=== PATIENT | female | born 1950 | race Caucasian/White ===

== ENCOUNTER 2024-08-18 04:03 | Observation (INO) ==
--- NOTE | 2024-08-18 04:53 | Emergency Department Note ---
HPI - Fever General Chief Complaint: Fever Stated Complaint: FLU SYMPTOMS Time Seen by Provider: 08/18/24 04:38 Source: patient and family (son) Mode of arrival: WC Limitations: physical limitation (cannot ambulate per son) History of Present Illness HPI Narrative: 74-year-old female presents to the ED this morning, accompanied by her son, with complaints of 4-day history of subjective fever, chills, body aches and diarrhea. Patient reports her pain is 8 out of 10 on pain scale, constant, aching, all over her body, worse with nothing, better with Tylenol. Patient reports her last dose of Tylenol was at 7 PM last night. The son also contributes, stating patient had a cold last week but was not seen by provider. Pertinent past history: Reports other (Hypertension, elevated cholesterol) Onset (ago): day(s) (4) Measured temperature: 100.9 F (subjective fever) Context: Denies sick contacts, other(s) with similar symptoms, recent travel, recent procedure, recent antibiotic use, on chemotherapy, on immunosuppressant(s), recent hospitalization or recent incarceration Exacerbating factors: Reports nothing Relieving factors: Reports acetaminophen Associated symptoms: Reports nasal congestion, sore throat, cough and shortness of breath Treatments prior to arrival fever: Reports acetaminophen (last dose 7pm) Related Data Allergies Allergy/AdvReac Type Severity Reaction Status Date / Time No Known Drug Allergies Allergy Verified 08/18/24 05:52 Review of Systems Status of ROS 10 or more systems reviewed and unremark able except as noted in history and below Constitutional Reports: fever (Subjective), chills, fatigue and other (G eneralized body aches) Eyes Denies: change in vision, eye discomfort or eye discharge Ears, nose, mouth, and throat Reports: throat pain and nasal congestion; Denies: neck pain, throat swelling, difficulty swallowing, hoarseness, ear pain or change in hearing (chronically [place]) Cardiovascular Denies: chest pain, palpitations, edema, swelling of feet/ankles or lightheadedness Respiratory Reports: shortness of breath and cough; Denies: wheezing, pain on inspiration or chest congestion Gastrointestinal Reports: diarrhea and other (Denies dark, tarry stool); Denies: abdominal pain, nausea, vomiting, constipation or blood in stool Genitourinary Denies: painful urination, urinary frequency, urinary urgency, blood in urine, difficulty voiding, decreased urine ouput or pelvic pain Musculoskeletal Reports: other (Generalized body aches); Denies: extremity swelling or limited range of motion Integumentary/Breast Denies: rash, itching, changes in skin color or jaundice Neurological Reports: weakness in extremities (generalized); Denies: headache, numbness in extremities, lack of coordination, dizziness or difficulty communicating thoughts Psychiatric Denies: anxiety or difficulty concentrating Endocrine Reports: fatigue; Denies: excessive urination or excessive thirst Hematologic/Lymphatic Denies: easy bruising or easy bleeding PFSH PFSH Medical History HTN (hypertension) Hyperlipidemia Surgical History Hx of cholecystectomy Social History (Updated 08/18/24 @ 06:15 by Bertha العراقي APRN) Smoking status: never smoker Within the past year, how often did you have a drink containing alcohol: never Score interpretation: A score less than 3 is consistent with normal alcohol consumption. Non-prescribed substance use: denies use Exam Constitutional: normal general appearance, no apparent distress, average body habitus, limitations noted (physical limitations) (son states pt is to weak to ambulate) and alert Vital Signs - 24 hr 08/18/24 04:05 08/18/24 05:00 08/18/24 06:00 Temperature 100.9 F H Pulse Rate 71 82 80 Respiratory Rate 22 22 20 Blood Pressure 149/59 152/65 145/68 Pulse Oximetry 98 96 96 Oxygen Delivery Me thod Room Air Room Air Room Air 08/18/24 07:00 Temperature Pulse Rate 85 Respiratory Rate 20 Blood Pressure 142/65 Pulse Oximetry 96 [facility] HENMT: normocephalic, head/scalp atraumatic, hearing grossly normal bilaterally (chronically [place]), external ears normal, TMs abnormal (dull) (bilateral) and (fluid behind TM) (bilateral), nasal mucous membranes abnormal (nasal discharge) (clear rhinorrhea, mild), external nose normal, oral mucous membranes abnormal (dry) and oropharynx abnormal (erythema) (mild) Eyes: PERRL, EOMs intact bilaterally, conjunctivae normal, no scleral icterus and periorbital findings normal Neck/C-Spine: visual inspection normal, trachea midline, cervical spine nontender, cervical full ROM noted, supple and no meningeal signs Lymph: no lymphadenopathy noted Chest: inspection of chest normal and palpation of chest normal Respiratory: breath sounds equal bilaterally, normal respiratory effort, clear to auscultation bilaterally and no use of accessory muscles Cardiovascular: normal heart rate noted, regular rhythm noted and no murmur Gastrointestinal: abdomen normal to inspection, abdomen soft to palpation, nontender to palpation, nondistended, abnormal bowel sounds noted (hyperactive bowel sounds), no hepatosplenomegaly and no masses Genitourinary: no CVA tenderness and bladder normal to palpation Back/Pelvis: spine normal to inspection, no thoracic spine tenderness, no lumbar spine tenderness, thoracic spine ROM normal and lumbar spine ROM normal Extremities: normal to inspection, normal to palpation, no tenderness, full ROM and no deformity Neurology: no movement abnormality noted, no focal motor deficit noted, no sensory deficits noted, gait normal, coordination normal and GCS normal Psychiatry: mental status grossly normal, oriented x3, thought process normal, cooperative and affect normal Skin: skin color normal, no rash, no ecchymosis noted, no wounds, no lacerations, skin turgor normal and no jaundice Course Course Hospital Course: 0543 - Pt now c/o upper abdominal pain. 10/10 on pain scale, constant, aching, better with nothing, worse with movement. CT abd/pelv with contrast ordered. 0608 - D Dimer elevated. CT angio Chest (PE protocol ordered). 0615 - Handoff given to Ania Flores NP. CT abd/pelv with contrast and CT angio chest (PE protocol) still pending. Vital Signs Vital signs: Vital Signs Temperature 100.9 F H 08/18/24 04:05 Pulse Rate 71 08/18/24 04:05 Respiratory Rate 22 08/18/24 04:05 Blood Pressure 149/59 08/18/24 04:05 Pulse Oximetry 98 08/18/24 04:05 Oxygen Delivery Method Room Air 08/18/24 04:05 Temperature 100.9 F H 08/18/24 04:05 Pulse Rate 85 08/18/24 07:00 Respiratory Rate 20 08/18/24 07:00 Blood Pressure 142/65 08/18/24 07:00 Pulse Oximetry 96 08/18/24 07:00 Oxygen Delivery Method Room Air 08/18/24 07:00 MDM - Fever MDM Narrative Medical decision making narrative: This is a 74 yo WF patient who presented to the ER today for complaints of 4-day history of subjective fever, chills, body aches and diarrhea. Patient reports her pain is 8 out of 10 on pain scale, constant, aching, all over her body, worse with nothing, better with Tylenol. Patient reports her last dose of T ylenol was at 7 PM last night. The son also contributes, stating patient had a cold last week but was not seen by provider. Patient was evaluated by physical exam labs, chest x-ray, CT abdomen and pelvis and CTA chest. She was found to have fever, bilateral otitis media, chest x-ray concerning for pneumonia- pending read, possible left breast mass noted on CTA chest. Labs revealed dehydration and sepsis. Patient received 2500 NS bolus, 1g Tylenol po, Rocephin 1 gm IV and Azithromycin 500 mg IV. Plan to admit for further evaluation and treatment including IV antibiotics, IV hydration and electrolyte correction. Patient in agreement for admission. Discussed case with UR and Dr. Gonzalez who is in agreement with treatment plan. Differential Diagnosis Differential diagnosis: Likely gastroenteritis, community acquired pneumonia, viral infection, sepsis and influenza Medical Records Attestation: I reviewed the patient's medical records. Lab Data Attestation: I reviewed the patient's lab results. Labs: Lab Results 08/18/24 08/18/24 08/18/24 Range/Units 05:10 06:00 06:00 WBC 13.2 H (4.3-9.3) K/uL RBC 5.3 (4.00-5.50) M/uL Hgb 13.8 (12.5-15.8) gm/dL Hct 42.6 (35.9-46.7) % MCV 79.7 L (81.0-93.7) fl MCH 25.8 L (27.6-32.2) pg MCHC 32.3 L (33.1-35.3) g/dl RDW 16.8 H (11.4-14.2) % Plt Count 228 (152-353) K/uL MPV 9.2 (6.9-10.8) fl Gran % 90.6 H (47.8-71.3) % Lymph % (Auto) 5.4 L (20.0-43.0) % [place] % (Auto) 1.7 L (3.6-9.8) % Eos % (Auto) 1.9 (0.4-2.8) % Baso % (Auto) 0.4 (0.1-0.85) Lymph # (Auto) 0.7 L (1.1-3.1) [place] # (Auto) 0.2 L (1.1-3.1) Eos # (Auto) 0.3 H (0.0-0.2) Baso # (Auto) 0.1 (0.0-0.1) Absolute Gran (auto) 11.9 H (2.3-6.0) D-Dimer 986 H (100-600) ng/mL ABG pH 7.52 H (7.35-7.45) ABG pCO2 25 L (35-45) mmHg ABG pO2 75 118 (60-100) mmHg ABG PO2/FiO2 Ratio 0.64 ABG HCO3 20.4 L (22-26) mmo1/L ABG Total CO2 21.2 mmo1/L ABG O2 Saturation 96 (92-100) % ABG Base Excess -1.1 (-2-2) mmo1/L Respiratory Index 0 (0-1) FiO2 50 % Sodium 140 (136-145) mmol/L Potassium 3.9 (3.6-5.2) mmol/L Chloride 103.0 (98-107) mmol/L Carbon Dioxide 24 (21-32) mmol/L Anion Gap 13.0 (4-14) mEq/L BUN 12 (7-18) mg/dL Creatinine 1.0 (0.6-1.3) mg/dL Estimated GFR 58.8 (>59.9) Glucose 108 (70-110) mg/dL Lactic Acid 2.9 H (0.27-1.43) mmol/L Calcium 9.8 (8.5-10.1) mg/dL Total Bilirubin 0.42 (0.0-1.0) mg/dL AST 21 (15-37) U/L ALT 14 L (30-65) U/L Alkaline Phosphatase 149 H (50-136) U/L B-Natriuretic Peptide 45.8 (0-100) pg/mL Total Protein 9.0 H (6.4-8.2) g/dL Albumin 3.8 (3.4-5.0) g/dL Lipase 49.0 (16.0-77.0) U/L COVID-19 ([place]) Not detected (Not Detectd) Influenza Type A Ag Negative (Negative) Influenza Type B Ag Negative (Negative) Streptococcus Screen Negative (Negative) 08/18/24 Range/Units 08:15 WBC (4.3-9.3) K/uL RBC (4.00-5.50) M/uL Hgb (12.5-15.8) gm/dL Hct (35.9-46.7) % MCV (81.0-93.7) fl MCH (27.6-32.2) pg MCHC (33.1-35.3) g/dl RDW (11.4-14.2) % Plt Count (152-353) K/uL MPV (6.9-10.8) fl Gran % (47.8-71.3) % Lymph % (Auto) (20.0-43.0) % [place] % (Auto) (3.6-9.8) % Eos % (Auto) (0.4-2.8) % Baso % (Auto) (0.1-0.85) Lymph # (Auto) (1.1-3.1) [place] # (Auto) (1.1-3.1) Eos # (Auto) (0.0-0.2) Baso # (Auto) (0.0-0.1) Absolute Gran (auto) (2.3-6.0) D-Dimer (100-600) ng/mL ABG pH (7.35-7.45) ABG pCO2 (35-45) mmHg ABG pO2 (60-100) mmHg ABG PO2/FiO2 Ratio ABG HCO3 (22-26) mmo1/L ABG Total CO2 mmo1/L ABG O2 Saturation (92-100) % ABG Base Excess (-2-2) mmo1/L Respiratory Index (0-1) FiO2 % Sodium (136-145) mmol/L Potassium (3.6-5.2) mmol/L Chloride (98-107) mmol/L Carbon Dioxide (21-32) mmol/L Anion Gap (4-14) mEq/L BUN (7-18) mg/dL Creatinine (0.6-1.3) mg/dL Estimated GFR (>59.9) Glucose (70-110) mg/dL Lactic Acid 2.0 H (0.27-1.43) mmol/L Calcium (8.5-10.1) mg/dL Total Bilirubin (0.0-1.0) mg/dL AST (15-37) U/L ALT (30-65) U/L Alkaline Phosphatase (50-136) U/L B-Natriuretic Peptide (0-100) pg/mL Total Protein (6.4-8.2) g/dL Albumin (3.4-5.0) g/dL Lipase (16.0-77.0) U/L COVID-19 ([place]) (Not Detectd) Influenza Type A Ag (Negative) Influenza Type B Ag (Negative) Streptococcus Screen (Negative) ABG Data Attestation: I have reviewed the pertinent ABG results. Interpretation: Primary Respiratory Alkalosis, Chronic with secondary metabolic alkalosis Imaging Data Imaging ordered: Chest x-ray, CT scan - abdomen and CT scan - chest Radiologist's impression: EXAM: CT ABDOMEN PELVIS W CON HISTORY: upper abdominal pain, nauseaupper abdominal pain, nausea; isovue 370 98 ml COMPARISON: 06/15/2023 TECHNIQUE: CT of the abdomen and pelvis obtained with IV contrast. Dose reduction techniques including Automated Exposure Control (AEC) and adjustment of mA and kV were utilized. Motion limited exam. FINDINGS: The visualized portions of the lower thorax demonstrate no acute process. No acute osseous abnormality. Multilevel degenerative changes in the visualized spine. Grade 1 anterolisthesis of L4 on L5. The liver, spleen, pancreas, bilateral adrenal glands, and bilateral kidneys demonstrate no acute process. Prior cholecystectomy. No evidence of bowel obstruction. The appendix is unremarkable. Diverticulosis without evidence of diverticulitis. The bladder is unremarkable. Prior hysterectomy. No free air or fluid. Nonaneurysmal aorta. Scattered vascular calcifications. IMPRESSION: No acute findings in the abdomen or pelvis. THIS IS AN ELECTRONICALLY VERIFIED FINAL REPORT 08/18/2024 6:37 AM - Electronically signed by Seth Mehta MD EXAM: CT ANGIO CHEST PE PROTOCOL HISTORY: elevated D Dimer, SOBelevated D Dimer, SOB; COMPARISON: None TECHNIQUE: CT angiogram of the chest obtained with IV contrast. 3D MIPS images obtained and reviewed. Dose reduction techniques including Automated Exposure Control (AEC) and adjustment of mA and kV were utilized. FINDINGS: No pneumothorax or effusion. No acute airspace disease. Peripheral scarring or atelectasis in the lungs. Evaluation of the pulmonary arteries is limited due to respiratory motion and contrast bolus timing. No evidence of pulmonary embolism. The heart is normal in size. No evidence of pericardial disease. No mediastinal adenopathy. No acute osseous abnormality. Possible left breast mass. The limited visualized portions of the upper abdomen demonstrate no acute process. Prior cholecystectomy. IMPRESSION: No evidence of pulmonary embolism. No acute airspace disease. Possible left breast mass. Recommend diagnostic mammogram and ultrasound for further evaluation. THIS IS AN ELECTRONICALLY VERIFIED FINAL REPORT 08/18/2024 8:00 AM - Electronically signed by Seth Mehta MD Discharge Plan Discharge Patient Disposition: Admitted As Inpatient Condition: Stable Clinical Impression: Community acquired pneumonia, Sepsis, Acute dehydration, Bilateral acute otitis media, Mass of left breast Time of Disposition: 08:57
[2024-08-18 05:21] LABS: Basophils #(Absolute) Auto 0.1 (0.0-0.1); Basophils%(Percent) Auto 0.4 (0.1-0.85); Eosinophils#(Absolute)Auto 0.3 (0.0-0.2); Eosinophils%(Percent) Auto 1.9 % (0.4-2.8); Granulocytes % - Auto 90.6 % (47.8-71.3); Granulocytes#(Absolute)- Auto 11.9 (2.3-6.0); Hematocrit 42.6 % (35.9-46.7); Mean Corpuscular Volume 79.7 fl (81.0-93.7); Monocytes #(Absolute)- Auto 0.2 (1.1-3.1); Monocytes %(Percent)- Auto 1.7 % (3.6-9.8); Platelet Count 228 K/uL (152-353); White Blood Count 13.2 K/uL (4.3-9.3)
[2024-08-18] MEDS ORDERED: 0.9 % SODIUM CHLORIDE 500 ML IV ONE (05:38)
[2024-08-18 05:39] LABS: Potassium 3.9 mmol/L (3.6-5.2)
[2024-08-18] MEDS: ACETAMINOPHEN 500 MG TABLET PO ONE (05:39)
[2024-08-18] MEDS ORDERED: ACETAMINOPHEN 500 MG TABLET ONE ×2 (05:39→05:40)
[2024-08-18 06:20] LABS: PCO2 ABG 25 mmHg (35-45); pH ABG 7.52 (7.35-7.45)
[2024-08-18 06:21] LABS: PO2 ABG 75 mmHg (60-100)
[2024-08-18 06:22] LABS: Base Excess ABG -1.1 mmo1/L (-2-2)
[2024-08-18 06:23] LABS: Oxygen Saturation ABG 96 % (92-100)
[2024-08-18] MEDS ORDERED: CEFTRIAXONE SODIUM 1 GM VIAL ONE (06:52)
[2024-08-18] MEDS ORDERED: AZITHROMYCIN 250 MG TABLET ONE (06:52)
[2024-08-18] MEDS: 0.9 % SODIUM CHLORIDE 1000 ML 1,000 ML IV STA ×2 (06:53→07:00)
[2024-08-18] MEDS: CEFTRIAXONE SODIUM 1 GM in 0.9 % SODIUM CHLORIDE MB+ 50 ML IV ONE (06:54)
[2024-08-18] MEDS ORDERED: 0.9 % SODIUM CHLORIDE 50 ML IV ONE (06:54)
[2024-08-18] MEDS: 0.9 % SODIUM CHLORIDE 500 ML IV STA (07:00)
[2024-08-18] MEDS ORDERED: 0.9 % SODIUM CHLORIDE 250 ML IV ONE (08:07)
[2024-08-18] MEDS ORDERED: AZITHROMYCIN 500 MG VIAL ONE (08:07)
[2024-08-18] MEDS: AZITHROMYCIN 500 MG 500 MG in 0.9 % SODIUM CHLORIDE 250 ML IV ONE (08:15)
[2024-08-18] MEDS: KETOROLAC 30 MG/ML INJ VIAL IVP PRN (17:24)
[2024-08-19] MEDS ORDERED: IBUPROFEN 400 MG TABLET PO PRN (04:14)
[2024-08-19] MEDS: ACETAMINOPHEN 325 MG TABLET PO PRN (04:52)
[2024-08-19 06:34] LABS: Basophils #(Absolute) Auto 0.1 (0.0-0.1); Eosinophils#(Absolute)Auto 0.1 (0.0-0.2); Eosinophils%(Percent) Auto 1.2 % (0.4-2.8); Granulocytes % - Auto 75.9 % (47.8-71.3); Hematocrit 36.7 % (35.9-46.7); Mean Corpuscular Volume 77.5 fl (81.0-93.7); Monocytes #(Absolute)- Auto 0.6 (1.1-3.1); Monocytes %(Percent)- Auto 9.1 % (3.6-9.8); Platelet Count 184 K/uL (152-353); White Blood Count 6.5 K/uL (4.3-9.3)
[2024-08-19 06:47] LABS: Potassium 3.7 mmol/L (3.6-5.2)
--- NOTE | 2024-08-19 07:50 | Event Note ---
Event Note Event Note: 0415 - called by AYUSH Daniel, who reports pt is c/o body aches and has no PRN medications ordered. Orders given for Tylenol 650mg PO q 6hrs PRN pain and Ibuprofen 600mg PO q 8hrs PRN pain.
[2024-08-19 07:59] VITALS: RESP 19
[2024-08-19] MEDS: CEFTRIAXONE SODIUM 1 GM in 0.9 % SODIUM CHLORIDE MB+ 50 ML IV SCH (08:19)
[2024-08-19] MEDS: AZITHROMYCIN 500 MG 500 MG in 0.9 % SODIUM CHLORIDE 250 ML IV SCH (08:19)
[2024-08-19 11:42] VITALS: BP 147/58; PULSE 86; TEMP 98.3
[2024-08-19] MEDS: LOSARTAN POTASSIUM 50 MG TABLET PO SCH (11:59)
[2024-08-19] MEDS: DULOXETINE HCL 30 MG CAPSULE.DR PO SCH (12:00)
[2024-08-19] MEDS: AMLODIPINE BESYLATE 5 MG TABLET PO SCH (12:00)
[2024-08-19] MEDS: FAMOTIDINE 20 MG TABLET PO SCH (12:39)
--- NOTE | 2024-08-19 14:09 | Short Stay Summary ---
H&P: HPI History of Present Illness Chief complaint: PNEUMONIA, SEPSIS, BILATERAL OTITIS MEDIA Narrative: 74-year-old female presents to the ED this morning, accompanied by her son, with complaints of 4-day history of subjective fever, chills, body aches and diarrhea. Patient reports her pain is 8 out of 10 on pain scale, constant, aching, all over her body, worse with nothing, better with Tylenol. Patient reports her last dose of Tylenol was at 7 PM last night. The son also contributes, stating patient had a cold last week but was not seen by provider. Pertinent past history: Reports other (Hypertension, elevated cholesterol) Onset (ago): day(s) (4) Measured temperature: 100.9 F (subjective fever) Context: Denies sick contacts, other(s) with similar symptoms, recent travel, recent procedure, recent antibiotic use, on chemotherapy, on immunosuppressant(s), recent hospitalization or recent incarceration Exacerbating factors: Reports nothing Relieving factors: Reports acetaminophen Associated symptoms: Reports nasal congestion, sore throat, cough and shortness of breath Treatments prior to arrival fever: Reports acetaminophen (last dose 7pm) Review of Systems Status of ROS 10 or more systems reviewed and unremark able except as noted in history and below Constitutional Reports: fever (Subjective), chills, fatigue, malaise and other (Generalized body aches); Denies: change in weight, night sweats or change in sleep pattern Eyes Denies: change in vision, blurry vision, blind spots, light sensitivity, eye discomfort or eye discharge Ears, nose, mouth, and throat Reports: throat pain and nasal congestion; Denies: neck pain, throat swelling, difficulty swallowing, hoarseness, mouth pain, swelling of lips/tongue, ear pain or change in hearing (chronically [place]) Cardiovascular Reports: shortness of breath with exertion; Denies: chest pain, palpitations, edema, swelling of feet/ankles or lightheadedness Respiratory Reports: shortness of breath and cough; Denies: wheezing, stridor, pain on inspiration, change in phlegm color, coughing up blood or chest congestion Gastrointestinal Reports: heartburn, diarrhea and other (Denies dark, tarry stool); Denies: abdominal pain, nausea, vomiting, coffee grounds in vomit, constipation, bloating, belching, excessive passing of gas, difficulty swallowing, feeling full early, change in bowel habits or blood in stool Genitourinary Reports: urinary incontinence; Denies: painful urination, urinary frequency, urinary urgency, blood in urine, difficulty voiding, decreased urine ouput, pelvic pain, painful menstruation, vaginal bleeding or vaginal discharge Musculoskeletal Reports: other (Generalized body aches); Denies: back pain, neck pain, extremity pain, extremity swelling, joint pain, limited range of motion or joint swelling Integumentary/Breast Denies: rash, itching, redness, skin pain, skin tenderness, changes in skin color or jaundice Neurological Reports: weakness in extremities (generalized) and vertigo; Denies: headache, numbness in extremities, lack of coordination, dizziness, confusion, slurred speech or difficulty communicating thoughts Psychiatric Reports: irritability; Denies: anxiety, mood swings, panic attacks, change in sleep pattern, hopelessness, loss of interest, difficulty concentrating, visual hallucinations or auditory hallucinations Endocrine Reports: fatigue; Denies: excessive urination, excessive thirst, cold intolerance, excessive sweating, flushing or change in body appearance Hematologic/Lymphatic Denies: easy bruising, easy bleeding or enlarged lymph nodes Allergic/Immunologic Denies: hives, throat swelling, tongue swelling, facial swelling, wheezing or itchy eyes PFSH PFSH Medical History Epigastric pain GERD with esophagitis Depression Diabetes type 2 with atherosclerosis of arteries of extremities Vertigo Arthritis Breast mass, left HTN (hypertension) Hyperlipidemia Surgical History Hx of cholecystectomy Social History Smoking status: never smoker Within the past year, how often did you have a drink containing alcohol: never Score interpretation: A score less than 3 is consistent with normal alcohol consumption. Non-prescribed substance use: denies use Problems where you live: no known problems Highest level of school completed/degree received: high school Meds Home Medications and Allergies Home Medications Medication Instructions Recorded Confirmed Type amlodipine 5 mg tablet 5 mg PO DAILY 08/18/24 08/18/24 History celecoxib 100 mg capsule 100 mg PO Q12H 08/18/24 08/18/24 History duloxetine 30 mg capsule,delayed 30 mg PO DAILY 08/18/24 08/18/24 History release famotidine 20 mg tablet 20 mg PO Q12H 08/18/24 08/18/24 History losartan 50 mg tablet 50 mg PO .Q 12 hours 08/18/24 08/18/24 History meclizine 25 mg tablet 25 mg PO .Q 12 hours PRN dizziness 08/18/24 08/18/24 History rosuvastatin 10 mg tablet 10 mg PO DAILY 08/18/24 08/18/24 History trazodone 50 mg tablet 50 mg PO BEDTIME PRN sleep 08/18/24 08/18/24 History azithromycin 250 mg tablet See Rx Instructions PO .COMPLEX 08/19/24 Rx (Zithromax Z-Ashkan) pneumonia #6 tabs Allergies Allergy/AdvReac Type Severity Reaction Status Date / Time No Known Drug Allergies Allergy Verified 08/18/24 05:52 Exam Constitutional: normal general appearance, no apparent distress, abnormal body habitus (overweight), limitations noted (physical limitations) (son states pt is to weak to ambulate) and alert Vital Signs - 24 hr 08/18/24 16:25 08/18/24 20:00 08/19/24 01:00 Temperature 97.7 F 98.6 F 98.4 F Pulse Rate [Left B rachial] 84 89 82 Respiratory Rate 19 18 18 Blood Pressure [Le ft Arm] 167/95 162/80 152/62 Pulse Oximetry 95 95 93 L Oxygen Delivery Pa thod Room Air Room Air Room Air 08/19/24 04:00 08/19/24 07:58 08/19/24 11:41 Temperature 98.1 F 97.6 F 98.3 F Pulse Rate [Left B rachial] 74 80 86 Respiratory Rate 18 19 19 Blood Pressure [Le ft Arm] 146/71 156/72 147/58 Pulse Oximetry 94 L 95 96 Oxygen Delivery Pa thod Room Air Room Air Room Air HENMT: normocephalic, head/scalp atraumatic, hearing grossly normal bilaterally (chronically [place]), external ears normal, TMs abnormal (dull) (bilateral) and (fluid behind TM) (bilateral), nasal mucous membranes abnormal (nasal discharge) (clear rhinorrhea, mild), external nose normal, oral mucous membranes abnormal (dry) and oropharynx abnormal (erythema) (mild) Eyes: PERRL, EOMs intact bilaterally, conjunctivae normal, no scleral icterus and periorbital findings normal Neck/C-Spine: visual inspection normal, trachea midline, cervical spine nontender, cervical full ROM noted, supple and no meningeal signs Lymph: no lymphadenopathy noted and no lymphedema noted Chest: inspection of chest normal and palpation of chest normal Respiratory: breath sounds equal bilaterally, normal respiratory effort, clear to auscultation bilaterally, wheezing noted, no rales, no retractions, no use of accessory muscles and chest percussion normal Cardiovascular: normal heart rate noted, regular rhythm noted, no gallop, no rub, no murmur, no JVD, no clicks and peripheral pulses 2+ throughout Gastrointestinal: abdomen normal to inspection, abdomen soft to palpation, nontender to palpation, nontender to percussion, nondistended, abnormal bowel sounds noted (hyperactive bowel sounds), no hepatosplenomegaly, no masses and no pulsatile mass Genitourinary: no CVA tenderness, bladder normal to palpation, external appearance normal, vagina normal and cervix normal Back/Pelvis: spine normal to inspection, no thoracic spine tenderness, no lumbar spine tenderness, thoracic spine ROM normal and lumbar spine ROM normal Extremities: normal to inspection, normal to palpation, no tenderness, full ROM, no joint enlargement and no deformity Neurology: floor director II-XII intact, no movement abnormality noted, no focal motor deficit noted, sensory deficit noted, deep tendon reflexes 2+ bilaterally, gait normal, speech normal, coordination normal and GCS normal Psychiatry: mental status grossly normal, oriented x3, thought process normal, cooperative and affect normal Skin: skin color normal, no rash, no lesions, no ecchymosis noted, no wounds, no lacerations, skin turgor normal, no jaundice, no petechiae, no mottling, nails normal and no alopecia Assessment and Plan Assessment and Plan (1) Pneumonia: Qualifiers: Laterality: unspecified laterality Lung location: unspecified part of lung Pneumonia type: due to unspecified organism Qualified Code(s): J18.9 - Pneumonia, unspecified organism Code(s): J18.9 - Pneumonia, unspecified organism (2) Breast mass, left: Qualifiers: Breast mass location: unspecified quadrant Qualified Code(s): N63.20 - Unspecified lump in the left breast, unspecified quadrant Code(s): N63.20 - Unspecified lump in the left breast, unspecified quadrant (3) HTN (hypertension): Qualifiers: Hypertension type: primary hypertension Qualified Code(s): I10 - Essential (primary) hypertension Code(s): I10 - Essential (primary) hypertension (4) Vertigo: Code(s): R42 - Dizziness and giddiness (5) Diabetes type 2 with atherosclerosis of arteries of extremities: Code(s): E11.51 - Type 2 diabetes mellitus with diabetic peripheral angiopathy without gangrene; I70.209 - Unspecified atherosclerosis of [place] arteries of extremities, unspecified extremity (6) GERD with esophagitis: Qualifiers: Esophagitis bleeding: without hemorrhage Qualified Code(s): K21.00 - Gastro-esophageal reflux disease with esophagitis, without bleeding Code(s): K21.00 - Gastro-esophageal reflux disease with esophagitis, without bleeding (7) Epigastric pain: Code(s): R10.13 - Epigastric pain Results Labs Labs: CBC WBC 6.5 K/uL (4.3-9.3) 08/19/24 05:45 RBC 4.7 M/uL (4.00-5.50) 08/19/24 05:45 Hgb 12.1 gm/dL (12.5-15.8) L 08/19/24 05:45 Hct 36.7 % (35.9-46.7) 08/19/24 05:45 MCV 77.5 fl (81.0-93.7) L 08/19/24 05:45 MCH 25.5 pg (27.6-32.2) L 08/19/24 05:45 MCHC 32.9 g/dl (33.1-35.3) L 08/19/24 05:45 RDW 16.4 % (11.4-14.2) H 08/19/24 05:45 Plt Count 184 K/uL (152-353) 08/19/24 05:45 MPV 10.7 fl (6.9-10.8) 08/19/24 05:45 Gran % 75.9 % (47.8-71.3) H 08/19/24 05:45 Lymph % (Auto) 12.8 % (20.0-43.0) L 08/19/24 05:45 [place] % (Auto) 9.1 % (3.6-9.8) 08/19/24 05:45 Eos % (Auto) 1.2 % (0.4-2.8) 08/19/24 05:45 Baso % (Auto) 1.0 (0.1-0.85) H 08/19/24 05:45 Lymph # (Auto) 0.8 (1.1-3.1) L 08/19/24 05:45 [place] # (Auto) 0.6 (1.1-3.1) L 08/19/24 05:45 Eos # (Auto) 0.1 (0.0-0.2) 08/19/24 05:45 Baso # (Auto) 0.1 (0.0-0.1) 08/19/24 05:45 Absolute Gran (auto) 5.0 (2.3-6.0) 08/19/24 05:45 BMP Sodium 138 mmol/L (136-145) 08/19/24 05:45 Potassium 3.7 mmol/L (3.6-5.2) 08/19/24 05:45 Chloride 102.0 mmol/L (98-107) 08/19/24 05:45 Carbon Dioxide 26 mmol/L (21-32) 08/19/24 05:45 Anion Gap 10.0 mEq/L (4-14) 08/19/24 05:45 BUN 9 mg/dL (7-18) 08/19/24 05:45 Creatinine 0.8 mg/dL (0.6-1.3) 08/19/24 05:45 Estimated GFR 76.8 (>59.9) 08/19/24 05:45 Glucose 113 mg/dL (70-110) H 08/19/24 05:45 Calcium 9.6 mg/dL (8.5-10.1) 08/19/24 05:45 Total Bilirubin 0.27 mg/dL (0.0-1.0) 08/19/24 05:45 AST 21 U/L (15-37) 08/19/24 05:45 ALT 17 U/L (30-65) L 08/19/24 05:45 Alkaline Phosphatase 98 U/L (50-136) 08/19/24 05:45 Total Protein 7.4 g/dL (6.4-8.2) 08/19/24 05:45 Albumin 3.0 g/dL (3.4-5.0) L 08/19/24 05:45 Liver Function Total Bilirubin 0.27 mg/dL (0.0-1.0) 08/19/24 05:45 AST 21 U/L (15-37) 08/19/24 05:45 ALT 17 U/L (30-65) L 08/19/24 05:45 Alkaline Phosphatase 98 U/L (50-136) 08/19/24 05:45 Total Protein 7.4 g/dL (6.4-8.2) 08/19/24 05:45 Albumin 3.0 g/dL (3.4-5.0) L 08/19/24 05:45 ABG ABG results: 08/18/24 06:00 ABG pH 7.52 H ABG pCO2 25 L ABG pO2 118 ABG HCO3 20.4 L ABG Total CO2 21.2 ABG O2 Saturation 96 ABG Base Excess -1.1 Attestation: I have reviewed the pertinent ABG results. Pulse Oximetry Attestation: I have reviewed the pertinent pulse oximetry results. ECG Attestation: I have reviewed the pertinent ECG results. Imaging Imaging ordered: Chest x-ray, CT scan - abdomen and other (chest CTA) Radiologist's impression: CT angiogram of the chest obtained with IV contrast. 3D MIPS images obtained and reviewed. Dose reduction techniques including Automated Exposure Control (AEC) and adjustment of mA and kV were utilized. FINDINGS: No pneumothorax or effusion. No acute airspace disease. Peripheral scarring or atelectasis in the lungs. Evaluation of the pulmonary arteries is limited due to respiratory motion and contrast bolus timing. No evidence of pulmonary embolism. The heart is normal in size. No evidence of pericardial disease. No mediastinal adenopathy. No acute osseous abnormality. Possible left breast mass. The limited visualized portions of the upper abdomen demonstrate no acute process. Prior cholecystectomy. IMPRESSION: No evidence of pulmonary embolism. No acute airspace disease. Possible left breast mass. Recommend diagnostic mammogram and ultrasound for further evaluation. CT ABDOMEN PELVIS W CON HISTORY: upper abdominal pain, nauseaupper abdominal pain, nausea; isovue 370 98 ml COMPARISON: 06/15/2023 TECHNIQUE: CT of the abdomen and pelvis obtained with IV contrast. Dose reduction techniques including Automated Exposure Control (AEC) and adjustment of mA and kV were utilized. Motion limited exam. FINDINGS: The visualized portions of the lower thorax demonstrate no acute process. No acute osseous abnormality. Multilevel degenerative changes in the visualized spine. Grade 1 anterolisthesis of L4 on L5. The liver, spleen, pancreas, bilateral adrenal glands, and bilateral kidneys demonstrate no acute process. Prior cholecystectomy. No evidence of bowel obstruction. The appendix is unremarkable. Diverticulosis without evidence of diverticulitis. The bladder is unremarkable. Prior hysterectomy. No free air or fluid. Nonaneurysmal aorta. Scattered vascular calcifications. IMPRESSION: No acute findings in the abdomen or pelvis. XR CHEST 1V HISTORY: fever, body achesfever, body aches; COMPARISON: 06/07/2023 FINDINGS: The cardiomediastinal silhouette is stable. No acute airspace disease. No pneumothorax or effusion. No acute osseous abnormality. IMPRESSION: No acute cardiopulmonary disease. DS: Providers Provider Date of admission: 08/18/24 09:38 Primary care physician: Ania Flores NP Admitting clinician: Bertha العراقي Attending physician on admission: Fiordaliza Gonzalez Attending physician on discharge: Fiordaliza Gonzalez Discharging clinician: Fiordaliza Gonzalez Anticipated date of discharge: 08/19/24 DS: Summary Hospital Course Hospital Course: 0543 - Pt now c/o upper abdominal pain. 10/10 on pain scale, constant, aching, better with nothing, worse with movement. CT abd/pelv with contrast ordered. 0608 - D Dimer elevated. CT angio Chest (PE protocol ordered). did well over night up most of the night with epigastric discomfort and cough has improved today although still noted when patient thinks about the cough. took discussion by myself and with her PCP Ania Flores to encourage patient of current healthcare needs and follow up Status at Discharge Functional status at discharge: independent ambulation Overall status at discharge: patient is back to baseline Time Spent with Patient Time attestation: Total time spent providing and/or coordinating discharge services: Time spent: greater than 30 minutes Discharge Plan Discharge Disposition: Home, Self-Care Condition: Improved Discharge Medications: New azithromycin [Zithromax Z-Ashkan] 250 mg tablet See Rx Instructions .ROUTE .COMPLEX Qty: 6 0RF Rx Instructions: For 250 mg dose pack: take 500 mg today (day 1), then 250 mg for 4 days (days 2-5) Continued amlodipine 5 mg tablet 5 mg PO DAILY Patient Comments: TAKE 1 TABLET BY MOUTH ONCE DAILY FOR HIGH BLOOD PRESSURE celecoxib 100 mg capsule 100 mg PO Q12H Patient Comments: TAKE 1 CAPSULE BY MOUTH TWICE DAILY duloxetine 30 mg capsule,delayed release(DR/EC) 30 mg PO DAILY Patient Comments: TAKE 1 CAPSULE BY MOUTH ONCE DAILY FOR 90 DAYS famotidine 20 mg tablet 20 mg PO Q12H Patient Comments: TAKE 1 TABLET BY MOUTH TWICE DAILY losartan 50 mg tablet 50 mg PO .Q 12 hours Patient Comments: TAKE 1 TABLET BY MOUTH TWICE DAILY FOR 90 DAYS meclizine 25 mg tablet 25 mg PO .Q 12 hours PRN (Reason: dizziness) Patient Comments: TAKE 1 TABLET BY MOUTH EVERY 12 HOURS NEEDED rosuvastatin 10 mg tablet 10 mg PO DAILY trazodone 50 mg tablet 50 mg PO BEDTIME PRN (Reason: sleep) Patient Comments: TAKE 1 TABLET BY MOUTH ONCE DAILY AT BEDTIME FOR 90 DAYS Discontinued hydrochlorothiazide 25 mg tablet 25 mg PO DAILY Patient Comments: TAKE 1 TABLET BY MOUTH ONCE DAILY FOR 90 DAYS metformin 500 mg tablet 500 mg PO DAILY Patient Comments: TAKE 1 TABLET BY MOUTH ONCE DAILY FOR DIABETES Mounjaro 2.5 mg/0.5 mL pen injector 2.5 mg SUBCUT .Weekly Patient Comments: INJECT 1 PEN (2.5MG) SUBCUTANEOUSLY ONCE EVERY WEEK Discharge Orders: Discharge Order (Routine); Ordered 08/19/24 Ordered By: Fiordaliza Gonzalez Activity: increase activity as tolerated Diet: diabetic diet and low fat, low cholesterol Diet Detail: improve water intake Interventions: MED/SURG & ICU Observation Charge Sheet Last Done: 08/19/24 06:29 Activity Restrictions/Additional Instructions: Patient has appointment in [place] with On Wednesday she understands to keep this appointment and to make a follow-up with Ania Anaya next week so that she can schedule her diagnostic mammogram and breast ultrasound. Patient at that time would be decide if she needs a biopsy or other referrals. Patient stands continue good handwashing wear mask when she is out and about avoid extreme temps as well as allergens and stop the Mounjaro and metformin as it may be contributing to her not feeling well. We suggest patient have a Nuclear stress test and echo secondary to not feeling well and having history of diabetes and hypertension. carotids and aortic screening as well as an outpatient. Forms: Portal/Health Info Access Inst Follow-Ups: Ania Flores NP [Primary Care Provider] -
[2024-08-19] MEDS ORDERED: FAMOTIDINE 20 MG TABLET PO SCH (21:00)
[2024-08-20] MEDS ORDERED: hydroCHLOROthiazide 25 MG TABLET PO SCH (09:00)
== END 2024-08-19 14:30 | disposition home or self-care (01) ==
LOC: MS 04:03 → ED 04:03 → MS 11:11
PROVIDERS: ADMIT Family Medicine; ATTEND Family Medicine